=== PATIENT | female | born 1955 | race Caucasian/White ===

== ENCOUNTER → 2020-07-22 | Outpatient (CLI) | payer BC ==
--- NOTE | 2020-07-22 16:28 | US ---
EXAMINATION TYPE: US abdomen complete DATE OF EXAM: 07/22/2020 COMPARISON: NONE CLINICAL HISTORY: R10.9 ABDOMINAL PAIN. RUQ pain radiating to right flank; history of breast CA; hyst erectomy. EXAM MEASUREMENTS: Liver Length: 12.3 cm Gallbladder Wall: 0.2 cm CBD: 0.4 cm Spleen: 8.7 cm Right Kidney: 9.5 x 6.1 x 4.3 cm Left Kidney: 10.8 x 5.2 x 4.8 cm Pancreas: hyperechoic Liver: wnl Gallbladder: wnl, fold noted at neck Evidence for sonographic Vicente's sign: no CBD: wnl Spleen: wnl Right Kidney: wnl Left Kidney: wnl Upper IVC: wnl Abd Aorta: wnl There is no ascites. IMPRESSION: No significant abnormality.
== END | disposition home or self-care (01) ==
LOC: RADUSWWP 15:16
PROVIDERS: ATTEND Family Medicine
DX: R10.11 Right upper quadrant pain (principal)
CPT/HCPCS: 76700